=== PATIENT | male | born 1995 | race Two or more races ===

== ENCOUNTER 2022-08-27 12:59 | Emergency (ER) | payer OTHER ==
[~2022-08-27] VITALS: Ht 177.8 cm; Wt 88.5 kg
== END 2022-08-27 18:12 | disposition home or self-care (01) ==
LOC: ER 12:59
DX: B34.9 Viral infection, unspecified (principal); Z90.5 Acquired absence of kidney; Z20.822 Contact with and (suspected) exposure to COVID-19